=== PATIENT | male | born 2000 | race Caucasian/White ===

== ENCOUNTER 2022-12-14 16:09 | Emergency (ER) | payer OTHER ==
[~2022-12-14] VITALS: Ht 172.7 cm; Wt 68.2 kg
[2022-12-14] MEDS ORDERED: ONDANSETRON 4MG 2ML VIAL IV ONE (16:45)
[2022-12-14] MEDS ORDERED: NS 1,000 ML IV ONE (16:45)
[2022-12-14] MEDS ORDERED: KETOROLAC 30 MG/ML 1ML VIAL IV ONE (16:55)
[2022-12-14] MEDS ORDERED: PANTOPRAZOLE 40MG VIAL IV ONE (16:55)
[2022-12-14 16:57] LABS: BASO % 0.2 % (0.0-1.0); EOS # 0.6 10^3/uL (0.0-0.5); EOS % 3.2 % (0.0-3.0); HEMOGLOBIN 16.3 g/dl (13.5-17.5); LYMPH # 0.8 10^3/uL (1.5-5.0); LYMPH % 4.4 % (24.0-44.0); MEAN CORPUSCULAR HEMOGLOBIN 30.7 pg (27.0-33.0); MEAN CORPUSCULAR HGB CONC 34.7 g/dl (32.0-36.5); MEAN CORPUSCULAR VOLUME 88.5 fl (80.0-96.0); MONO # 0.6 10^3/uL (0.0-0.8); MONO % 3.3 % (2.0-8.0); NEUTROPHILS # 16.1 10^3/uL (1.5-8.5); NEUTROPHILS % 88.5 % (36.0-66.0); PLATELET COUNT, AUTOMATED 367 10^3/uL (150-450); RED BLOOD COUNT 5.31 10^6/uL (4.30-6.10); WHITE BLOOD COUNT 18.3 10^3/uL (4.0-10.0)
[2022-12-14 17:24] LABS: ALBUMIN 4.8 G/DL (3.2-5.2); BILIRUBIN,DIRECT 0.4 MG/DL (<0.4); BILIRUBIN,TOTAL 1.1 MG/DL (0.3-1.2); TOTAL PROTEIN 8.3 G/DL (5.7-8.2)
[2022-12-14] MEDS ORDERED: ONDA4TAB6 PO (18:59)
[2022-12-14 19:15] VITALS: BP 141/63
== END 2022-12-14 19:24 | disposition home or self-care (01) ==
LOC: M ED 16:09
DX: T51.0X1A Toxic effect of ethanol, accidental (unintentional), initial encounter (principal); Z88.0 Allergy status to penicillin
CPT/HCPCS: 80047; 80076; 83690; 85025; 96361; 96374; 96375; 99284; C9113; J1885; J2405

== ENCOUNTER → 2022-12-26 | Outpatient (CLI) | payer OTHER ==
[~2022-12-26] MED LIST: ONDA4TAB6 PO
== END ==
LOC: M WUC 12:50
PROVIDERS: ATTEND Nurse Practitioner Family
DX: R07.1 Chest pain on breathing (principal)

== ENCOUNTER 2023-02-23 13:01 | Emergency (ER) | payer OTHER ==
[~2023-02-23] VITALS: Ht 172.7 cm; Wt 70.5 kg
[2023-02-23 13:04] VITALS: TEMP 99.7
[2023-02-23] MEDS ORDERED: KETOROLAC 30 MG/ML 1ML VIAL IV ONE (17:15)
[2023-02-23] MEDS ORDERED: NS 1,000 ML IV ONE (17:15)
[2023-02-23] MEDS ORDERED: ONDANSETRON 4MG 2ML VIAL IV ONE (17:15)
[2023-02-23 18:00] VITALS: BP 126/66; O2SAT 99
== END 2023-02-23 18:05 | disposition home or self-care (01) ==
LOC: M ED 13:01
DX: N11.0 Nonobstructive reflux-associated chronic pyelonephritis (principal); R51.9 Headache, unspecified; Z88.0 Allergy status to penicillin
CPT/HCPCS: 70450; 96361; 96374; 96375; 99283; J1885; J2405